=== PATIENT | male | born 1975 | race Two or more races ===

== ENCOUNTER 2019-09-17 09:36 | Emergency (ER) | payer BC ==
[2019-09-17 09:53] VITALS: BMI 26.6
[2019-09-17] MEDS ORDERED: CLINDAMYCIN IVPB 300 MG in DEXTROSE 5%-WATER - 48 ML IVPB ONE (11:06)
[2019-09-17] MEDS ORDERED: SODIUM CHLORIDE 1,000 ML IV STA (11:06)
[2019-09-17] MEDS ORDERED: CLINDAMYCIN PHOSPHATE 600 MG/4 ML VIAL ONE (11:15)
[2019-09-17] MEDS ORDERED: CLINDAMYCIN IVPB ONE (11:17)
[2019-09-17] MEDS ORDERED: WATER IVPB ONE (11:17)
[2019-09-17] MEDS ORDERED: DEXTROSE 5% IVPB ONE (11:17)
--- NOTE | 2019-09-17 11:17 | PDOC ---
History of Present Illness - General Chief Complaint: Toothache Stated Complaint: FEVER/ABCESS Time Seen by Provider: 09/17/19 10:52 History Source: Patient Exam Limitations: No Limitations Past History - Travel Traveled outside of the country in the last 30 days: No Close contact w/someone who was outside of country & ill: No - Past Medical History Allergies/Adverse Reactions: Allergies Allergy/AdvReac Type Severity Reaction Status Date / Time No Known Allergies Allergy Verified 09/17/19 09:53 COPD: No - Psycho Social/Smoking Cessation Hx Smoking History: Never smoked Hx Alcohol Use: Yes Drug/Substance Use Hx: No Review of Systems - Review of Systems Able to Perform ROS?: Yes Comments:: 09/17/19 13:41 CONSTITUTIONAL: Absent: fever, chills, diaphoresis, generalized weakness, malaise, loss of appetite HEENT: Present: Dental pain, facial swelling absent: rhinorrhea, nasal congestion, throat pain, throat swelling, difficulty swallowing, mouth swelling, ear pain, eye pain, visual Changes CARDIOVASCULAR: Absent: chest pain, loss of consciousness, palpitations, irregular heart rate, peripheral edema RESPIRATORY: Absent: cough, shortness of breath, dyspnea with exertion, orthopnea, wheezing, stridor, hemoptysis MUSCULOSKELETAL: Absent: myalgia, arthralgia, joint swelling SKIN: Absent: rash, itching, pallor NEUROLOGIC: Absent: headache, focal weakness or paresthesias, dizziness, unsteady gait, seizure, mental status changes, bladder or bowel incontinence PSYCHIATRIC: Absent: anxiety, depression, suicidal or homicidal ideation, hallucinations. Is the patient limited Faroese proficient: No *Physical Exam - Vital Signs Last Vital Signs Temp Pulse Resp BP Pulse Ox 99.2 F 98 H 16 111/75 100 09/17/19 09:49 09/17/19 09:49 09/17/19 09:49 09/17/19 09:49 09/17/19 09:49 - Physical Exam 09/17/19 13:42 GENERAL: Well developed, well nourished. Awake and alert. No acute distress. HEENT: (+) trismus, swelling noted to the R submandibular area, beginning to cross over the midline. (+) halitosis. Normocephalic, atraumatic. PERRLA, EOMI. No conjunctival pallor. Sclera are non-icteric. Moist mucous membranes. NECK: Supple. Full ROM. No JVD. Carotid pulses 2+ and symmetric, without bruits. No thyromegaly. No lymphadenopathy. CARDIOVASCULAR: Regular rate and rhythm. No murmurs, rubs, or gallops. Distal pulses are 2+ and symmetric. PULMONARY: No evidence of respiratory distress. Lungs clear to auscultation bilaterally. No wheezing, rales or rhonchi. SKIN: Warm and dry. Normal capillary refill. No rashes. No jaundice. NEUROLOGICAL: Alert, awake, appropriate. Cranial nerves 2-12 intact. No deficits to light touch and temperature in face, upper extremities and lower extremities. No motor deficits in the in face, upper extremities and lower extremities. Normoreflexic in the upper and lower extremities. Normal speech. Toes are down- going bilaterally. Gait is normal without ataxia. PSYCHIATRIC: Cooperative. Good eye contact. Appropriate mood and affect. ED Treatment Course - LABORATORY CBC & Chemistry Diagram: 09/17/19 11:31 09/17/19 12:54 - RADIOLOGY Radiology Studies Ordered: Category Date Time Status FACIAL BONES CT WITH CONTRAST [CT] Stat CT Scan 09/17/19 11:07 Ordered Medical Decision Making - Medical Decision Making 09/17/19 13:43 The patient is a 43-year-old male with no past medical history who presents the ER with 2 days of facial swelling. He states that he had tooth extracted on September 11. He states that he was not placed on antibiotics after the procedure. He notes that he had some pain on Tuesday where the tooth was extracted. He states when he woke up Tuesday he noticed some facial swelling which got worse when he woke up this morning. He states that he is unable to open his mouth fully due to the pain. He also notes he has a bump under his tongue. He admits to subjective fevers and chills. Denies difficulty swallowing, vomiting, chills. A/P: Facial abscess/Arnoldo's angina On exam patient with positive trismus and halitosis. Swelling to the submandibular region b/l and swollen soft tissue to the floor of the mouth, R worse than L Pt talking and swallowing his own secretions in FT Labs, IV abx, IVF, CT facial with contrast ordered Leukocytosis to [address] shows facial abscess along the R mandible with swelling of the R masseter, significant soft tissue swelling over the right side of the face as well as along the medial and lateral aspect of the right mandibular body. Large right submandibular and submental lymph nodes present. Vanc, zosyn and clinda given. Pt to be transferred to [facility] for OMFS services Case accepted by Dr. Buckner Discharge - Discharge Information Problems reviewed: Yes Clinical Impression/Diagnosis: Facial abscess, Arnoldo's angina Condition: Guarded Disposition: TRANSFER ACUTE CARE/OTHER HOSP - Admission No - Follow up/Referral Referrals: Nicolle Zuñiga [Primary Care Provider] - - Patient Discharge Instructions - Post Discharge Activity - Transfer to Acute Care Facility Receiving Facility Name: [facility] Accepting Physician:: Dr. Hernandez
[2019-09-17 11:43] LABS: BASO % 0.5 % (0-2.0); EOS % 0.1 % (0-4.5); HEMATOCRIT 44.1 % (35.4-49); HEMOGLOBIN 14.5 GM/dL (11.7-16.9); LYMPH % 11.1 % (8-40); MCHC 32.8 g/dl (32.0-35.9); MEAN CELL VOLUME 88.3 fl (80-96); MEAN PLT VOLUME 9.8 fl (7.5-11.1); MONO % 6.8 % (3.8-10.2); NEUT % 81.5 % (42.8-82.8); PLATELET COUNT 316 K/MM3 (134-434); RBC 4.99 M/mm3 (4.00-5.60); RDW 14.3 % (11.9-15.9); WHITE BLOOD COUNT 18.4 K/mm3 (4.0-10.0)
[2019-09-17 13:48] LABS: ALBUMIN 3.8 g/dl (3.4-5.0); BILIRUBIN,TOTAL 0.7 mg/dL (0.2-1); CALCIUM 8.5 mg/dL (8.5-10.1); POTASSIUM 4.1 mmol/L (3.5-5.1); TOT PROT 7.5 g/dl (6.4-8.2)
[2019-09-17] MEDS ORDERED: VANCOMYCIN 1,000 MG in DEXTROSE 5%-WATER - 250 ML IVPB ONE (13:55)
[2019-09-17] MEDS ORDERED: PIPERACILLIN/TAZOB 3.375 GM 3.375 GM in DEXTROSE 5%-WATER - 50 ML IVPB ONE (13:55)
[2019-09-17] MEDS ORDERED: VANCOMYCIN 1 GRAM (PRE-DOCKED) 1,000 MG/250 ML BAG IVPB ONE (15:10)
[2019-09-17] MEDS ORDERED: PIPERACILLIN/TAZOB 3.375 GM 3.375 GM/50 ML BAG IVPB ONE (15:10)
--- NOTE | 2019-09-17 15:55 | PDOC ---
*Physical Exam - Vital Signs Last Vital Signs Temp Pulse Resp BP Pulse Ox 99.2 F 98 H 16 111/75 100 09/17/19 09:49 09/17/19 09:49 09/17/19 09:49 09/17/19 09:49 09/17/19 09:49 ED Treatment Course - LABORATORY CBC & Chemistry Diagram: 09/17/19 11:31 09/17/19 12:54 - ADDITIONAL ORDERS Additional order review: Laboratory Results 09/17/19 09/17/19 12:54 11:31 Sodium 136 Cancelled Potassium 4.1 Cancelled Chloride 101 Cancelled Carbon Dioxide 28 Cancelled Anion Gap 7 L Cancelled BUN 14.0 Cancelled Creatinine 1.0 Cancelled Est GFR (CKD-EPI)AfAm 104.88 Cancelled Est GFR (CKD-EPI)NonAf 90.49 Cancelled Random Glucose 92 Cancelled Calcium 8.5 Cancelled Total Bilirubin 0.7 Cancelled AST 9 L Cancelled ALT 29 Cancelled Alkaline Phosphatase 92 Cancelled Total Protein 7.5 Cancelled Albumin 3.8 Cancelled 09/17/19 11:31 RBC 4.99 MCV 88.3 MCHC 32.8 RDW 14.3 MPV 9.8 Neutrophils % 81.5 Lymphocytes % 11.1 Monocytes % 6.8 Eosinophils % 0.1 Basophils % 0.5 - Medications Given in the ED: ED Medications Discontinued Medications Generic Name Dose Route Start Last Admin Trade Name Freq PRN Reason Stop Dose Admin Clindamycin Phosphate 300 mg/ 50 mls @ 100 mls/hr 09/17/19 11:06 09/17/19 11: 24 Dextrose IVPB 09/17/19 11:35 Not Given ONCE ONE Protocol Sodium Chloride 1,000 mls @ 1,000 mls/hr 09/17/19 11:06 09/17/19 11:24 Normal Saline - IV 09/17/19 12:05 1,000 mls/hr ASDIR STA Administration Clindamycin Phosphate 600 mg/ 50 mls @ 100 mls/hr 09/17/19 11:17 09/17/19 11: 24 Dextrose IVPB 09/17/19 11:35 100 mls/hr ONCE ONE Administration Protocol Vancomycin HCl 1,000 mg/ 250 mls @ 166.667 mls/hr 09/17/19 13:55 09/17/19 15: 28 Dextrose IVPB 09/17/19 15:24 166.667 mls/hr ONCE ONE Administration Medical Decision Making - Medical Decision Making 09/17/19 15:46 Mr Rodríguez will be transferred to [facility] He presents with facial swelling s/p dental extraction on Sep 11 He was not placed on antibiotics after the procedure. He became concerned because the he was unable to open his mouth fully due to the pain, swelling beneath his tongue, subjective fevers and chills. No stridor, no difficulty swallowing Agree with CHANDA examination Labs reveal Leukocytosis, neutrophil predominance CT shows facial abscess along the R mandible with swelling of the R masseter, significant soft tissue swelling over the right side of the face as well as along the medial and lateral aspect of the right mandibular body. Large right submandibular and submental lymph nodes present. Vanc, zosyn and clinda given. Pt to be transferred to [facility] for OMFS services Case accepted by Dr. Buckner Discharge - Discharge Information Problems reviewed: Yes Clinical Impression/Diagnosis: Facial abscess, Arnoldo's angina Condition: Guarded Disposition: TRANSFER ACUTE CARE/OTHER HOSP - Follow up/Referral Referrals: Nicolle Zuñiga [Primary Care Provider] - - Patient Discharge Instructions - Post Discharge Activity
[2019-09-17 16:40] VITALS: BP 125/83; PULSE 112; TEMP 99.1
== END 2019-09-17 16:00 | disposition short-term general hospital (02) ==
LOC: JERFT 09:36 → JER 09:36
DX: K12.2 Cellulitis and abscess of mouth (principal); L02.01 Cutaneous abscess of face; K08.109 Complete loss of teeth, unspecified cause, unspecified class
CPT/HCPCS: 36415; 70487-TC; 80053; 85025; 87040; 99284-25; J7030; Q9967